=== PATIENT | female | born 1955 | race Caucasian/White ===

== ENCOUNTER 2024-05-26 21:27 | Emergency (ER) | payer MEDICARE, BC ==
[~2024-05-26] VITALS: Ht 152.4 cm; Wt 58.9 kg
[2024-05-26 22:29] LABS: BILIRUBIN,URINE NEGATIVE (Neg); CLARITY,URINE CLEAR (Clear); COLOR,URINE YELLOW (Yellow); GLUCOSE, URINE NEGATIVE (Neg); KETONES,URINE NEGATIVE (Neg); LEUKOCYTE ESTERASE ,URINE NEGATIVE (Neg); NITRITES, URINE NEGATIVE (Neg); OCCULT BLOOD,URINE TRACE-INTACT (Neg); PH,URINE 5.5 (4.8-8.0); PROTEIN,URINE 100 mg/dl (Neg); UA COLLECTION TYPE CLN CATCH MIDSTREAM; UROBILINOGEN,URINE 0.2 E.U/dL (0.2-1.0)
[2024-05-26 22:31] LABS: ALANINE AMINOTRANSFERASE 29 U/L (12-78); ALBUMIN 4.3 G/DL (3.4-5.0); ALBUMIN/GLOBULIN RATIO 1.2 (1.1-1.5); ALKALINE PHOSPHATASE 89 IU/L (46-116); ANION GAP 13 (8-16); ASPARTATE AMINO TRANSFERASE 28 U/L (10-37); BILIRUBIN,TOTAL 0.6 MG/DL (0.1-1.0); BLOOD UREA NITROGEN 47 MG/DL (7-18); BUN/CREATININE RATIO 24.6 (10.0-20.0); CALCIUM 10.2 MG/DL (8.5-10.1); CHLORIDE 103 MMOL/L (99-107); CREATININE 1.91 MG/DL (0.40-0.90); GLUCOSE 153 MG/DL (70-104); LIPASE 20 U/L (16-77); POTASSIUM 3.7 MMOL/L (3.5-5.1); SODIUM 142 MMOL/L (135-145); TOTAL CARBON DIOXIDE 26.2 MMOL/L (24-32); TOTAL PROTEIN 7.8 G/DL (6.4-8.2); eCRCL 19 ML/MIN; eGFR 26 ML/MIN
[2024-05-26 22:35] LABS: BACTERIA,URINE 4+ /HPF (Neg); SQUAMOUS EPITHELIAL CELL,UR FEW /LPF (FEW)
[2024-05-26 22:51] LABS: BASOPHILS % (AUTO) 0.8 % (0-1); EOSINOPHILS % (AUTO) 0.2 % (0-6); HEMATOCRIT 35.5 % (35.0-45.0); HEMOGLOBIN 11.5 g/dl (12.0-16.0); LYMPHOCYTES # (AUTO) 1.1 X10'3 (1.1-4.8); LYMPHOCYTES % (AUTO) 20.1 % (21-51); MEAN CORPUSCULAR HEMOGLOBIN 30.6 PG (27.0-31.0); MEAN CORPUSCULAR HGB CONC 32.4 g/dL (33.0-36.5); MEAN CORPUSCULAR VOLUME 94.6 FL (78-98); MEAN PLATELET VOLUME 8.1 FL (7.4-10.4); MONOCYTES # (AUTO) 0.5 X10'3 (0-0.9); MONOCYTES % (AUTO) 9.9 % (2-12); NEUTROPHILS # (AUTO) 3.7 X10'3 (1.8-7.7); PLATELET COUNT 193 X10'3 (140-440); RED BLOOD COUNT 3.75 X10'6 (4.20-5.60); RED CELL DISTRIBUTION WIDTH 13.2 % (11.5-14.5); WHITE BLOOD COUNT 5.4 X10'3 (4.5-11.0)
[2024-05-26] MEDS: normal saline 1000ML IV soln IVB ONE (23:00)
[2024-05-26] MEDS: ondansetron/PF 4mg/2ml inj IV ONE ×2 (23:03→23:45)
[2024-05-26] MEDS: proCHLORperazine 10 MG/2 ml inj IV ONE (23:51)
[2024-05-27] MEDS ORDERED: losartan 50mg tablet PO SCH (00:35)
[2024-05-27] MEDS ORDERED: carVEDilol 12.5mg tablet PO SCH (00:35)
[2024-05-27] MEDS: LORazepam 2 mg/ml vial IV ONE (00:39)
[2024-05-27] MEDS: CefTRIAXone/D5W-Rocephin 1gm 50 ML IV ONE (00:49)
[2024-05-27] MEDS: carVEDilol 12.5mg tablet PO ONE (00:49)
[2024-05-27] MEDS: losartan 25mg tablet PO ONE (00:55)
[2024-05-27] MEDS: cloNIDine 0.1 MG/24 HOUR patch (7 day patch) TD ONE (03:12)
[2024-05-27] MEDS ORDERED: CEPH-585 PO (04:47)
[2024-05-27 05:03] VITALS: BP 133/94; PULSE 124; RESP 16; TEMP 98.6; O2SAT 97
== END 2024-05-27 05:00 | disposition home or self-care (01) ==
LOC: ER 21:29
DX: N39.0 Urinary tract infection, site not specified (principal); E86.0 Dehydration; I12.9 Hypertensive chronic kidney disease with stage 1 through stage 4 chronic kidney disease, or unspecified chronic kidney disease; N18.9 Chronic kidney disease, unspecified; I48.91 Unspecified atrial fibrillation; Z88.5 Allergy status to narcotic agent; Z88.6 Allergy status to analgesic agent; Z88.8 Allergy status to other drugs, medicaments and biological substances; Z94.2 Lung transplant status
CPT/HCPCS: 36415; 80053; 81001; 83690; 85025; 87077; 87088; 87186; 93005; 96361; 96374; 96375; 96376; 99285; J0696; J0780; J2060; J2405; J7030